=== PATIENT | male | born 1960 | race Caucasian/White ===

== ENCOUNTER 2018-11-02 17:41 | Inpatient (IN) ==
[2018-11-02 18:16] LABS: BASO# 0.02 X1000 (0.0-0.2); BASO% 0.1 % (0.0-0.8); EOS# 0.14 X1000 (0.0-0.7); EOS% 0.8 % (0.0-10.0); HEMOGLOBIN 15.2 g/dL (14.0-18.0); IMM GRAN# 0.05 X1000 (0.0-0.04); IMM GRAN% 0.3 % (0.0-0.5); LYMPH# 1.68 X1000 (1.2-3.4); LYMPH% 10.1 % (20.5-51.1); MCH 31.7 PG (27-31); MCHC 34.5 g/dL (33-37); MCV 91.9 FL (81-99); MONO# 1.82 X1000 (0.11-0.59); MPV 9.2 FL (7.4-10.4); NEUT# 12.88 X1000 (1.4-6.5); NEUT% 77.7 % (42.2-75.2); PLT 249 X1000 (130-400); RBC 4.79 XMIL (4.7-6.1); RDW 13.2 % (11.5-14.5); WBC 16.59 X1000 (4.8-10.8)
[2018-11-02 18:29] LABS: AGAP 12; ALKALINE PHOSPHATASE 99 U/L (32-122); BUN 11 mg/dL (8-22); CALCIUM 8.8 mg/dL (8.8-10.2); CHLORIDE 101 mmol/L (98-107); COSMO 276; CREATININE 0.8 mg/dL (0.7-1.2); ESTIMATED GFR > 60; GLUCOSE 107 mg/dL (70-104); GOT 26 U/L (10-34); GPT 24 U/L (10-44); LIPASE 19 U/L (13-60); POTASSIUM 3.7 mmol/L (3.5-5.1); SODIUM 138 mmol/L (136-145); TCO2 25 mmol/L (25-35); TOTAL PROTEIN 7.1 g/dL (6.3-8.3)
[2018-11-02 18:55] LABS: BILIRUBIN URINE NEGATIVE (NEGATIVE); BLOOD URINE NEGATIVE (NEGATIVE); CLARITY CLEAR (CLEAR); COLOR YELLOW; GLUCOSE URINE NEGATIVE (NEGATIVE); KETONE URINE TRACE mg/dL (NEGATIVE); LEUKOCYTES URINE NEGATIVE (NEGATIVE); NITRITE URINE NEGATIVE (NEGATIVE); PROTEIN URINE TRACE mg/dL (NEGATIVE); UROBILINOGEN URINE NORMAL
[2018-11-02 19:12] LABS: URINE SOURCE CLEAN CATCH
[2018-11-02 19:13] LABS: URINE RBC <10 /HPF (<10); URINE WBC <10 /HPF (<10)
[2018-11-02 19:14] LABS: URINE BACTERIA 1+ /HFP; URINE CAST NONE SEEN /LPF; URINE CRYSTAL NONE SEEN /HPF; URINE EPITHELIAL CELLS >10 /HPF (<10); URINE YEAST NONE SEEN /HPF
[2018-11-02] MEDS ORDERED: NS 1,000 ML IV ONE (19:33)
[2018-11-02] MEDS ORDERED: ZOFRAN IV ONE (19:33)
[2018-11-02] MEDS ORDERED: LEVAQUIN 750 MG/D5W 750 MG/150 ML IVPB IV ONE (19:33)
[2018-11-02] MEDS ORDERED: MORPHINE IV ONE (19:33)
--- NOTE | 2018-11-02 20:46 | Diag Imaging Result Doc PS360 ---
EXAM: CT ABDOMEN/PELVIS W/O CONTRAST 11/02/2018 HISTORY: RLQ pain, h/o diverticulitis TECHNIQUE: This exam was performed using automated exposure control, adjustment of mA or kV according to patient size, and/or use of iterative reconstruction technique. COMMENT: There is dependent atelectasis bilaterally. This was not present on 05/15/2015. There is no evidence of hydronephrosis or nephrolithiasis. There are no visible gallstones. There are granulomata in the spleen. The adrenal glands pancreas and liver are grossly normal in the absence of IV contrast. There are some scattered diverticula in the descending colon. There is gas and stool in the colon. The small bowel is not distended. There is inflammatory change in the distal descending and proximal sigmoid region with its epicenter around the diverticulum anteriorly. This is very close to the area of inflammation on the previous study of 05/15/2015. There is marked atrophy of the paraspinal muscles particularly on the left side. There is no discrete abscess. The urinary bladder is not distended. There is no evidence of free air or free fluid. The appendix is normal in appearance. The visualized skeleton is stable in appearance. IMPRESSION: Proximal sigmoid diverticulitis. Electronically signed by Vasquez Gunderson 11/02/2018 8:44 PM
[2018-11-02] MEDS ORDERED: ZOFRAN IV PRN (21:08)
[2018-11-02] MEDS ORDERED: MORPHINE IV PRN (21:08)
[2018-11-02] MEDS: NS 1,000 ML IV ONE (22:45)
[2018-11-03] MEDS ORDERED: [UNRECOGNIZED DRUG - OTHER] IV SCH
[2018-11-03] MEDS ORDERED: FLAGYL IV SCH
[2018-11-03] MEDS: NS 1,000 ML IV ONE (04:20)
[2018-11-03] MEDS ORDERED: FLAGYL 250 MG/NS 250 MG/50 ML IVPB IV SCH (08:00)
--- NOTE | 2018-11-03 09:34 | HISTORY AND PHYSICAL ---
PRIMARY CARE PHYSICIAN: Dr. Peter Ortega. CHIEF COMPLAINT: Left lower quadrant abdominal pain for 2 days with nausea and constipation that had progressively worsened. HISTORY OF PRESENTING ILLNESS: This is a 58-year-old male who presents to [facility] ER with a 2-day history of left lower quadrant abdominal pain, nausea and constipation. He states that he has had a history of diverticulitis in the past and that the pain feels the same as prior. He described it as a sharp, cramping, moderate pain and that began with light activity. His workup showed a white blood cell count of 16.59. His CT of the abdomen and pelvis showed an impression of proximal sigmoid diverticulitis, so he is being admitted for further evaluation and treatment. PAST MEDICAL HISTORY: Diverticulitis, diverticulosis and hypertension. PAST SURGICAL HISTORY: Hernia repair. SOCIAL HISTORY: He currently lives with family. He denies any cigarette use. He does use smokeless tobacco 1 can every 3 days and states he drinks a 6 pack of beer weekly, and denied any elicit drug use. ALLERGIES: He has no known drug allergies. HOME MEDICATIONS: He takes lisinopril 20 mg p.o. daily and verapamil 240 mg p.o. daily. LABORATORY DATA: Showed a white blood cell count of 16.59, hemoglobin 15.2, hematocrit 44, platelets 249,000. Sodium 138, potassium 3.7, chloride 101, CO2 25, BUN of 11, creatinine 0.8, glucose 107. Urinalysis was negative except for 1+ white blood cells. CT of the abdomen and pelvis showed a proximal sigmoid diverticulitis. REVIEW OF SYSTEMS: He denied any fever, chills, blurred vision, dizziness, chest pain, coughing, shortness of breath. He was positive for left lower quadrant abdominal pain and some suprapubic abdominal pain. Denied any diarrhea. States he has had constipation and nausea. No vomiting and no burning or hurting with urination. PHYSICAL EXAMINATION: VITAL SIGNS: On arrival, he had a temperature of 98.4 degrees, pulse 84, respirations 16, blood pressure 168/62, saturating 93% on room air. GENERAL: This is a 58-year-old male who is sitting up in the bed and answers questions appropriately. HEENT: Normocephalic, atraumatic. Normal ENT inspection. Oropharynx and nares are clear. EYES: Pupils are equal, round, and reactive to light and accommodation. Extraocular movements are intact. NECK: Normal inspection, normal range of motion. LUNGS: Clear to auscultation bilaterally with equal lung expansion and chest wall movement. HEART: Regular rate and rhythm. No murmurs, rubs, or gallops. ABDOMEN: Soft. There is tenderness to palpation to the left lower quadrant that is mild at this time. Bowel sounds are present x4 quadrants. MUSCULOSKELETAL: He has 5/5 strength x4 extremities. NEUROLOGICAL: The cranial nerves 2-12 appear grossly intact. ASSESSMENT: 1. Left lower quadrant abdominal pain. 2. Proximal sigmoid diverticulitis. 3. Hypertension. 4. Tobacco use and abuse. PLAN: He is admitted to the medical unit. He was initially held n.p.o. but we are going to advance him to some clear liquids this morning as he states he is no longer having any nausea. We will place him on Flagyl 500 mg IV every 8, Levaquin 750 mg IV q.24, morphine 2 mg IV q.6 hours p.r.n., normal saline at 125 mL an hour. Recheck a CBC and BMP this a.m. and further orders after seen by attending. Dictated by WERNER Mendenhall for Angel Bryant MD Addendum: Patient seen and examined by myself. Agree with WERNER note. It reflects my assessment and plan. Patient is being admitted to hospital for acute diverticulitis. Will start him on Levaquin and Flagyl. He is not nauseated so will start clear liquid diet and advance it as tolerated. cc: WERNER Mendenhall MD David Francis, MD [facility]ITAL[facility]aston
[2018-11-03 09:52] LABS: BASO# 0.02 X1000 (0.0-0.2); BASO% 0.2 % (0.0-0.8); EOS% 0.8 % (0.0-10.0); HEMATOCRIT 40.2 % (42.0-52.0); HEMOGLOBIN 13.5 g/dL (14.0-18.0); IMM GRAN# 0.03 X1000 (0.0-0.04); IMM GRAN% 0.2 % (0.0-0.5); LYMPH% 13.4 % (20.5-51.1); MCH 31.6 PG (27-31); MCHC 33.6 g/dL (33-37); MCV 94.1 FL (81-99); MONO# 1.62 X1000 (0.11-0.59); MONO% 12.8 % (1.7-9.3); NEUT# 9.23 X1000 (1.4-6.5); NEUT% 72.6 % (42.2-75.2); PLT 210 X1000 (130-400); RBC 4.27 XMIL (4.7-6.1); RDW 13.2 % (11.5-14.5)
[2018-11-03 10:28] LABS: AGAP 8; BUN 11 mg/dL (8-22); CALCIUM 8.5 mg/dL (8.8-10.2); CHLORIDE 105 mmol/L (98-107); COSMO 278; CREATININE 0.8 mg/dL (0.7-1.2); ESTIMATED GFR > 60; GLUCOSE 92 mg/dL (70-104); POTASSIUM 4.7 mmol/L (3.5-5.1); SODIUM 140 mmol/L (136-145); TCO2 26 mmol/L (25-35)
[2018-11-03] MEDS: NS 1,000 ML IV SCH ×2 (11:39→20:19)
[2018-11-03] MEDS: PRINIVIL PO SCH (12:53)
[2018-11-03] MEDS: ISOPTIN SR PO SCH (12:53)
[2018-11-03] MEDS: FLAGYL 500 MG/NS 500 MG/100 ML IVPB IV SCH ×2 (16:20→22:41)
[2018-11-03] MEDS ORDERED: LEVAQUIN 750 MG/D5W 750 MG/150 ML IVPB IV SCH (19:00)
[2018-11-04] MEDS: FLAGYL 500 MG/NS 500 MG/100 ML IVPB IV SCH (06:17)
[2018-11-04] MEDS: NS 1,000 ML IV SCH ×2 (07:02→11:43)
[2018-11-04 07:12] LABS: BASO# 0.02 X1000 (0.0-0.2); BASO% 0.3 % (0.0-0.8); EOS% 1.4 % (0.0-10.0); HEMATOCRIT 37.2 % (42.0-52.0); HEMOGLOBIN 12.5 g/dL (14.0-18.0); IMM GRAN# 0.02 X1000 (0.0-0.04); IMM GRAN% 0.3 % (0.0-0.5); LYMPH# 1.32 X1000 (1.2-3.4); LYMPH% 18.9 % (20.5-51.1); MCH 31.5 PG (27-31); MCHC 33.6 g/dL (33-37); MCV 93.7 FL (81-99); MONO# 0.89 X1000 (0.11-0.59); MONO% 12.7 % (1.7-9.3); MPV 9.7 FL (7.4-10.4); NEUT# 4.65 X1000 (1.4-6.5); NEUT% 66.4 % (42.2-75.2); PLT 183 X1000 (130-400); RBC 3.97 XMIL (4.7-6.1); RDW 13.1 % (11.5-14.5)
[2018-11-04 07:25] LABS: AGAP 10; BUN 11 mg/dL (8-22); CHLORIDE 108 mmol/L (98-107); COSMO 280; CREATININE 0.9 mg/dL (0.7-1.2); ESTIMATED GFR > 60; GLUCOSE 95 mg/dL (70-104); SODIUM 141 mmol/L (136-145); TCO2 23 mmol/L (25-35)
[2018-11-04 07:49] VITALS: BP 135/80
[2018-11-04] MEDS: PRINIVIL PO SCH (08:28)
[2018-11-04] MEDS: ISOPTIN SR PO SCH (08:28)
[2018-11-04] MEDS ORDERED: MIRALAX PO SCH (09:15)
--- NOTE | 2018-11-06 13:18 | DISCHARGE SUMMARY ---
ADMISSION DATE: 11/02/2018 DISCHARGE DATE: 11/04/2018 PRIMARY CARE PHYSICIAN: Peter Ortega MD ADMISSION DIAGNOSES: 1. Left lower quadrant abdominal pain. 2. Proximal sigmoid diverticulitis. 3. Hypertension. 4. Tobacco use and abuse. DISCHARGE DIAGNOSES: 1. Left lower quadrant abdominal pain, improved. 2. Proximal sigmoid diverticulitis. 3. Hypertension. 4. Tobacco use and abuse. SUMMARY OF FINDINGS: This is a 58-year-old male, who presented to the ER with a 2-day history of left lower quadrant abdominal pain, nausea, and constipation. Has a history of diverticulitis in the past. States it felt the same as prior. Described it as a sharp cramping moderate pain. His white blood cell count was noted to be 16.59. CT of the abdomen and pelvis showed an impression of a proximal sigmoid diverticulitis. He was admitted, started on clear liquids, Flagyl 500 mg IV q.8 h., Levaquin 750 mg IV q.24 h., morphine 2 mg IV q.6 h., normal saline at 125. His white blood cell count had returned to normal at 7. He was tolerating a GI soft diet, responding well to antibiotics, and so it was felt that he could safely be discharged home. DISCHARGE MEDICATIONS: Included a prescription for Levaquin 750 mg p.o. daily, #12 with no refills; a prescription for Flagyl 500 mg p.o. t.i.d., #36 with no refills; a prescription for MiraLAX 17 g p.o. daily; a prescription for tramadol 50 mg p.o. q.6 h. p.r.n. Continue lisinopril 20 mg p.o. daily and verapamil 240 mg p.o. daily. FOLLOW-UP: He needs to follow up with his primary care physician in the next 1 to 2 weeks and call their office for an appointment. All discharge instructions were reviewed with the patient, and he verbalized understanding. COORDINATION TIME: A 33-minute discharge. Dictated by WERNER Mendenhall for Angel Bryant MD Addendum: Patient seen and examined by myself. Agree with WERNER note. It reflects my assessment and plan. Patient is being discharged in stable condition. Will be seen by PCP in a week. cc: WERNER Mendenhall MD David Francis, MD [facility]
== END 2018-11-04 13:17 | disposition home or self-care (01) | DRG 392 ==
LOC: P.ED 17:41 → P.MEDSURG 17:42
PROVIDERS: ATTEND Internal Medicine
CPT/HCPCS: 74176; 80048; 80053; 81001; 82150; 83690; 85025; 87040; 96365; 96375; 99285; A9270; J1956; J2270; J2405; J7030; S0030